=== PATIENT | female | born 1985 | race Caucasian/White ===

== ENCOUNTER 2023-01-01 06:54 | Day surgery (SDC) | payer BC ==
[~2023-01-01] VITALS: Ht 160 cm; Wt 99.0 kg
[2023-01-01] MEDS ORDERED: normal saline 1000ml 1,000 ML IV PRN (07:15)
[2023-01-01 07:36] VITALS: BP 118/70
[2023-01-01] MEDS ORDERED: SERT-434 PO (07:48)
[2023-01-01] MEDS ORDERED: LEVO50TA8 PO (07:48)
[2023-01-01] MEDS ORDERED: ALPR1TAB7 (07:48)
[2023-01-01] MEDS ORDERED: LIDOcaine 1% 30ml preserv. free vial ONE (08:32)
[2023-01-01] MEDS ORDERED: midazolam 1 mg/ML 2ml injection ONE ×2 (08:32→09:37)
[2023-01-01] MEDS ORDERED: heparin sodium, porcine/PF 100unit/ml 5ML syringe ONE (08:32)
[2023-01-01] MEDS ORDERED: fentaNYL/PF 50MCG/1 ML 2ML syringe ONE ×2 (08:32→09:37)
[2023-01-01] MEDS ORDERED: normal saline 1000ml 1,000 ML IV SCH (09:20)
[2023-01-01 10:07] VITALS: BP 116/64
[2023-01-01 10:22] VITALS: BP 103/71
[2023-01-01 10:37] VITALS: BP 98/73
[2023-01-01 10:52] VITALS: BP 104/69
[2023-01-01 11:07] VITALS: BP 113/71
== END 2023-01-01 11:15 | disposition home or self-care (01) ==
LOC: SSTAY O 06:54
PROVIDERS: ATTEND Radiology Diagnostic Radiology
DX: C50.911 Malignant neoplasm of unspecified site of right female breast (principal); E66.8 Other obesity; Z68.38 Body mass index [BMI] 38.0-38.9, adult; Z88.2 Allergy status to sulfonamides; Z91.013 Allergy to seafood; Z91.030 Bee allergy status; Z91.012 Allergy to eggs; Z79.899 Other long term (current) drug therapy
CPT/HCPCS: 36561; 76937; 77001; 99152; 99153; J1642; J2250; J3010; J3490; J7030; A4620; C1769; C1788; C1894